=== PATIENT | female | born 1950 | race Caucasian/White ===

== ENCOUNTER 2021-07-20 11:28 | Emergency (ER) | payer MEDICARE ==
[~2021-07-20] VITALS: Ht 175.3 cm; Wt 99.8 kg
[~2021-07-20 11:28] MED LIST: ANTIVERT 12.512.5 MG PO; CIPROFLOXACIN750 MG PO; FLAGYL500 MG PO; NORCO 5-325 TA1 EACH PO; ZOFRAN 4 MG TAB4 MG PO; ZOFRAN4 MG PO
== END 2021-07-20 14:20 | disposition home or self-care (01) ==
LOC: ER1 11:28
DX: U07.1 COVID-19 (principal); Z23 Encounter for immunization; I10 Essential (primary) hypertension
CPT/HCPCS: 99282; M0245